=== PATIENT | male | born 1990 | race Hispanic/Latino ===

== ENCOUNTER 2018-01-26 22:16 | Emergency (ER) | payer OTHER ==
[2018-01-26] MEDS ORDERED: TYLENOL PO ONE (22:54)
--- NOTE | 2018-01-27 00:08 | XRay Report ---
FINAL REPORT EXAM: XR ELBOW 3+V RT HISTORY: injured and swollen right elbow TECHNIQUE: Three views of the right elbow were submitted. FINDINGS: There is prominence of the anterior fat pad suggesting small joint effusion. There is no definite fracture identified. The radial head appears intact. The soft tissues otherwise well maintained. IMPRESSION: Prominence of the anterior fat pad suggesting small joint effusion. No obvious fracture identified. If elbow pain persists, repeat study is recommended 7-10 days to evaluate for occult fracture.
--- NOTE | 2018-01-27 00:09 | XRay Report ---
FINAL REPORT EXAM: XR SPINE CERVICAL 2-3V HISTORY: neck pain TECHNIQUE: Four views of the cervical spine were submitted. FINDINGS: There is a mild dextroscoliosis. The disc heights and alignment appear normal. There is no evidence of fracture. The prevertebral soft tissues and C1-C2 articulation appear intact. IMPRESSION: Mild dextroscoliosis. No evidence of fracture
[2018-01-27] MEDS ORDERED: NORCO 7.5/325 ONE (01:38)
[2018-01-27] MEDS ORDERED: NORCO 7.5/325 PO ONE (01:44)
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
[2018-01-27] MEDS ORDERED: THERMAZENE 50 GRAM TP ONE ×2 (04:19→04:22)
[2018-01-27] MEDS ORDERED: DECADRON IM ONE (04:42)
[2018-01-27 05:21] VITALS: BP 134/89
== END 2018-01-27 05:23 | disposition home or self-care (01) ==
LOC: ED 22:16
DX: S42.434A Nondisplaced fracture (avulsion) of lateral epicondyle of right humerus, initial encounter for closed fracture (principal); S13.4XXA Sprain of ligaments of cervical spine, initial encounter; F90.9 Attention-deficit hyperactivity disorder, unspecified type; V89.2XXA Person injured in unspecified motor-vehicle accident, traffic, initial encounter; Y93.89 Activity, other specified; Y92.89 Other specified places as the place of occurrence of the external cause; Y99.8 Other external cause status
CPT/HCPCS: 29105; 72040; 73080; 73200; 96372; 99285; J1100